=== PATIENT | female | born 1995 | race Two or more races ===

== ENCOUNTER 2018-01-19 19:45 | Emergency (ER) | payer OTHER ==
[~2018-01-19] VITALS: Ht 172.7 cm; Wt 76.3 kg
[2018-01-19 20:02] VITALS: BP 100/56
[2018-01-19 20:53] LABS: Basophils # (auto) 0 uL; Basophils % (auto) 0.2 % (0.0-2.0); Eosinophils # (auto) 0.1 uL; Eosinophils % (auto) 0.9 % (0.0-7.0); Hematocrit 37.8 % (36.0-46.0); Hemoglobin 12.5 g/dL (12.2-16.2); Lymphocytes # (auto) 2.2 uL; Lymphocytes % (auto) 27.4 % (10.0-50.0); Mean Corpuscular Hemoglobin 28.9 pg (28.0-32.0); Mean Corpuscular Hgb Conc. 33.1 g/dL (32.0-36.0); Mean Corpuscular Volume 87.4 fL (80.0-100.0); Monocytes # (auto) 0.6 uL; Monocytes % (auto) 6.7 % (0.0-12.0); Neutrophils # (auto) 5.3 uL; Neutrophils % (auto) 64.8 % (37.0-80.0); Platelet Count (auto) 340 10^3/uL (140-450); Red Blood Cells 4.32 10^6/uL (4.0-5.20); Red Cell Distribution Width 13.8 % (11.8-14.3); White Blood Cell 8.2 10^3/uL (4.4-10.8)
[2018-01-19 20:57] LABS: Urine Bacteria FEW /hpf (None Seen); Urine Blood Negative /uL (Negative); Urine Specific Gravity 1.016 (1.001-1.035); Urine WBC 2 /hpf (0 - 5)
[2018-01-19 21:09] LABS: Albumin 3.6 g/dL (3.4-5.0); BUN/Creatinine Ratio 25.6; Calcium 8.6 mg/dL (8.5-10.1)
[2018-01-19 21:12] LABS: Bilirubin, Total 0.2 mg/dL (0.2-1.0); Total Protein 6.9 g/dL (6.4-8.2)
== END 2018-01-19 22:13 | disposition left against medical advice (07) ==
LOC: ER 19:51
DX: O21.9 Vomiting of pregnancy, unspecified (principal); Z3A.01 Less than 8 weeks gestation of pregnancy; Z53.21 Procedure and treatment not carried out due to patient leaving prior to being seen by health care provider
CPT/HCPCS: 36415; 80053; 81001; 84702; 85025